=== PATIENT | male | born 1975 | race African-American/Black ===

== ENCOUNTER 2017-08-06 01:02 | Emergency (ER) | payer BC ==
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
[2017-08-06] MEDS ORDERED: METHOCARBAMOL 500 MG TABLET PO ONE (02:20)
[2017-08-06] MEDS ORDERED: IBUPROFEN 400 MG TABLET (FP) PO ONE ×2 (02:20→02:25)
[2017-08-06] MEDS ORDERED: METHOCARBAMOL 500 MG TABLET ONE (02:24)
[2017-08-06 02:27] VITALS: BP 129/89; PULSE 91; TEMP 97.3; BMI 30.9
== END 2017-08-06 05:14 | disposition home or self-care (01) ==
LOC: JER 01:02
DX: M62.838 Other muscle spasm (principal); M54.2 Cervicalgia; X50.1XXA Overexertion from prolonged static or awkward postures, initial encounter; Y93.84 Activity, sleeping; Y92.032 Bedroom in apartment as the place of occurrence of the external cause; Y99.8 Other external cause status
CPT/HCPCS: 72125-TC; 99281-25

== ENCOUNTER 2017-12-28 08:31 | Day surgery (SDC) | payer BC ==
[2017-12-25 11:14] VITALS: BMI 29.0
[2017-12-28 09:12] LABS: BASO % 0.8 % (0-2.0); EOS % 0.6 % (0-4.5); HEMATOCRIT 37.5 % (35.4-49); HEMOGLOBIN 12.4 GM/dL (11.7-16.9); LYMPH % 33.5 % (8-40); MCH 30.8 pg (25.7-33.7); MCHC 33.1 g/dl (32.0-35.9); MEAN CELL VOLUME 92.9 fl (80-96); MEAN PLT VOLUME 6.9 fl (7.5-11.1); MONO % 8.6 % (3.8-10.2); NEUT % 56.5 % (42.8-82.8); PLATELET COUNT 331 K/MM3 (134-434); RBC 4.04 M/mm3 (4.00-5.60); RDW 12.6 % (11.9-15.9); WHITE BLOOD COUNT 6.4 K/mm3 (4.0-10.0)
[2017-12-28 09:25] VITALS: TEMP 98.5
[2017-12-28 09:31] LABS: INR 1.13 (0.82-1.09); PROTHROMBIN TIME (PATIENT) 12.8 SEC (9.7-13.0)
[2017-12-28 13:40] VITALS: BP 150/80; PULSE 73
== END 2017-12-28 13:35 | disposition home or self-care (01) ==
LOC: JRADIR 08:31
PROVIDERS: ATTEND Neurological Surgery
PROC: 3E0R3KZ Introduction of Other Diagnostic Substance into Spinal Canal, Percutaneous Approach (ICD-10-PCS; principal; 2017-12-28)
PROC: B01BYZZ Fluoroscopy of Spinal Cord using Other Contrast (ICD-10-PCS; 2017-12-28)
DX: M54.2 Cervicalgia (principal); G62.9 Polyneuropathy, unspecified
CPT/HCPCS: 36415; 62302; 72125-TC; 72240-TC-FY; 77002-TC-FY; 85025; 85610